=== PATIENT | male | born 1980 | race African-American/Black ===

== ENCOUNTER 2017-05-12 13:53 | Inpatient (IN) | payer OTHER ==
[~2017-05-12] VITALS: Ht 167.6 cm; Wt 91.2 kg
[2017-05-12] MEDS ORDERED: LORAZEPAM 1 MG TABLET FOR AGITATION PO PRN ×2 (14:00→16:00)
--- NOTE | 2017-05-12 15:00 | NUR ---
MS VARITYPE OPERATOR NOTE PATIENT IS ALERT AND ORIENTED x4. NO PAIN AT THIS TIME. NO SOB OR DISTRESS NOTED. CALL LIGHT WITHIN REACH. SAFETY MEASURES IMPLEMENTED. ABLE TO COMMUNICATE NEEDS. NO IV ACCESS AT THIS TIME. ALL BELONGINGS WITH PATIENT AT BEDSIDE. HERE FOR CLINICAL TRIAL. ALL MD ORDERS NOTED AND CARRIED OUT. PATIENT HAS MEDICATIONS WHICH ARE WITH PHARMACY AND SIGNED BY PATIENT. REGULAR DIET WITH DOUBLE PORTIONS. NO HISTORY, NO ISOLATION, FULL CODE. WILL CONTINUE TO MONITOR
[2017-05-12 16:00] VITALS: BP 151/86
[2017-05-12] MEDS ORDERED: ACETAMINOPHEN ES 500 MG TABLET PO PRN (16:00)
[2017-05-12] MEDS ORDERED: MAGNESIUM HYDROXIDE 30 ML UDC PO PRN (16:00)
[2017-05-12] MEDS ORDERED: MAG HYDROX/AL HYDROX/SIMETH 30 ML UDC PO PRN (16:00)
[2017-05-12] MEDS ORDERED: IBUPROFEN 200 MG TABLET PO PRN (16:00)
[2017-05-12] MEDS ORDERED: QUET300T3 PO (16:06)
[2017-05-12] MEDS ORDERED: RISP0.253 PO (16:06)
--- NOTE | 2017-05-12 18:41 | NUR ---
MS RN CLOSING NOTE PATIENT IS ALERT AND ORIENTED x4. NO PAIN AT THIS TIME. NO SOB OR DISTRESS NOTED. CALL LIGHT WITHIN REACH AT ALL TIMES. SAFETY MEASURES IMPLEMENTED. ABLE TO COMMUNICATE NEEDS. NO IV ACCESS. CLINICAL TRIAL. AMBULATORY. WILL ENDORSE TO GRIPPER ATTACHER NURSE
--- NOTE | 2017-05-12 19:40 | NUR ---
MS/RN OPENING NOTES PT AWAKE, A/OX4. ON ROOM AIR, BREATHING EVEN AND UNLABORED. DENIES SOB OR PAIN. NO IV ACCESS. CLINICAL TRIAL. BED IN LOW/LOCKED POSITION WITH CALL LIGHT IN REACH. SIDE RAILS UPX2. WILL CONTINUE TO MONITOR
[2017-05-12 20:00] VITALS: BP 132/71
[2017-05-12 20:13] VITALS: BP 132/71
[2017-05-12] MEDS: risperiDONE 1 MG TABLET PO SCH (22:27)
[2017-05-12] MEDS: QUETIAPINE FUMARATE 100 MG TABLET PO SCH (23:35)
--- NOTE | 2017-05-13 06:42 | NUR ---
MS/RN CLOSING NOTES PT ASLEEP, EASILY AROUSABLE TO NAME. A/OX4, ON ROOM AIR, BREATHING EVEN AND UNLABORED. NO S/S OF APPARENT DISTRESS NOTED. DENIES SOB OR PAIN. NO IV ACCESS. MADE PT COMFORTABLE DURING SHIFT. ALL NEEDS MET. SLEPT FOR APPROX 6 HOURS. BED IN LOW/LOCKED POSITION WITH CALL LIGHT IN REACH. SIDE RAILS UPX2. WILL ENDORSE TO AM SHIFT ERROL.
--- NOTE | 2017-05-13 07:35 | NUR ---
RN OPENING NOTES RECEIVED PT. IN BED A&OX4. BREATHING UNLABORED, AND EVENLY ON ROOM AIR. NO S/S OF ACUTE DISTRESS. BED IS IN LOWEST LOCKED POSITION, 2 SIDE RAILS UP, AND INSTRUCTED PT. TO USE CALL LIGHT FOR ASSISTANCE. WILL CONTINUE TO ASSESS AND MONITOR.
[2017-05-13 08:00] VITALS: BP 120/71
--- NOTE | 2017-05-13 08:30 | NUR ---
RN NOTES PT. LEFT ROOM WITH STATION MECHANIC APPRENTICE TO GO OUTSIDE. PT. CAME BACK TO THE SAME ROOM. PT. LEFT ROOM AGAIN.
[2017-05-13 16:00] VITALS: BP 131/73
--- NOTE | 2017-05-13 19:36 | NUR ---
RN CLOSING NOTES PT. IN BED A&OX4 WATCHING TV. BREATHING UNLABORED, AND EVENLY ON ROOM AIR. NO S/S OF ACUTE DISTRESS. BED IS IN LOWEST LOCKED POSITION, 2 SIDE RAILS UP, AND INSTRUCTED PT. TO USE CALL LIGHT FOR ASSISTANCE. WILL ENDORSE REPORT TO NURSE.
--- NOTE | 2017-05-13 19:40 | NUR ---
MS/RN OPENING NOTES PT AWAKE, RESTING COMFORTABLY IN BED. A/O4. ON ROOM AIR, BREATHING EVEN AND UNLABORED. DENIES SOB OR PAIN. NO IV ACCESS. BED IN LOW/LOCKED POSITION WITH CALL LIGHT IN REACH. SIDE RAILS UPX2. WILL CONTINUE TO MONITOR
[2017-05-13 20:00] VITALS: BP 133/92
[2017-05-13] MEDS: risperiDONE 1 MG TABLET PO SCH (21:31)
[2017-05-13] MEDS: QUETIAPINE FUMARATE 100 MG TABLET PO SCH (22:34)
--- NOTE | 2017-05-13 22:55 | NUR ---
MS/RN NOTES FIRST ATTEMPT TO PULL SCHEDULED SEROQUEL FROM PYX[facility], MEDICATION NOT TAKE. LID CLOSED TOO QUICKLY AND LOCKED. SECOND ATTEMPT SUCCESSFUL
--- NOTE | 2017-05-14 07:40 | NUR ---
MS/RN CLOSING NOTES PT ASLEEP, EASILY AROUSABLE TO NAME. A/OX4. ON ROOM AIR, BREATHING EVEN AND UNLABORED. DENIES SOB OR PAIN. NO APPARENT DISTRESS NOTED. NO IV ACCESS PER PROTOCOL. SLEPT APPROX 6HOURS LAST NIGHT. DENIES S/I OR H/I. NOTES VISUAL/AUDITORY HALLUCINATIONS BUT MEDICATION HELPS A LITTLE BIT. PT REQUESTING FOR DAYTIME ACTIVITIES. BED IN LOW/LOCKED POSITION, CALL LIGHT IN REACH. ENDORSED TO AM SHIFT ERROL.
--- NOTE | 2017-05-14 08:10 | NUR ---
0730: PATIENT ALERT ORIENTED X4. NONLABORED BREATHING ON ROOM AIR. PATIENT'S FACIAL EXPRESSIONS AND BODY MOVEMENTS INDICATE CALMNESS. PATIENT DENIES PAIN, AND DENIES INSOMNIA. BED IN LOWEST LOCKED POSITION. CALL LIGHT WITHIN REACH. 0810- REPORT GIVEN TO LUCY
--- NOTE | 2017-05-14 08:15 | NUR ---
RN NOTES RECEIVED PT. PT IS STABLE AND AWAKE IN BEDSIDE CHAIR. A/OX4, NO S/S OF DISTRESS OR SOB. NO C/O PAIN AT THIS TIME. PT IS A CLINICAL TRIAL PT, SET TO BEGIN TRIAL MEDICATIONS ON 05/19. SAFETY MEASURES IN PLACE, CALL LIGHT WITHIN REACH. WILL CONTINUE TO MONITOR.
[2017-05-14 08:30] VITALS: BP 100/54
--- NOTE | 2017-05-14 15:23 | NUR ---
RN NOTES PT IS STABLE AND RESTING IN BED. A/O X 4. NO SOB OR LABORED BREATHING, NO IV ACCESS. PT HAS NOT REQUESTED FOR ANY PRN MEDICATIONS DURING MY SHIFT.
[2017-05-14 16:10] VITALS: BP 109/76
--- NOTE | 2017-05-14 18:34 | NUR ---
RN CLOSING NOTES PT IS IN BED RESTING. A/OX4. NO S/S OF RESPIRATORY DISTRESS OR SOB. PT HAS BEEN COMPLIANT WITH ALL REQUESTS. PT DENIES ANY PRESENCE OF AUDITORY OR VISUAL HALLUCINATIONS AT THIS TIME. PT DENIES HAVING HI OR SI. ALL PT NEEDS ANTICIPATED AND MET. SAFETY MEASURES IN PLACE, CALL LIGHT WITHIN REACH. WILL ENDORSE TO MEDIA PRODUCER FOR ERROL.
--- NOTE | 2017-05-14 19:30 | NUR ---
RN NOTES: SITTING COMFORTABLY IN BED,A/OX4,COOPERATIVE AND CALM, NO SIGN OF ANXIETY NOTED,ON ROOM AIR, NO PAIN OR DISCOMFORT UPON ENDORSEMENT TIME, FALL, SAFETY PRECAUTION OBSERVE, BED LOW AND LOCKED, CALL LIGHT WITHIN EASY REACH.
[2017-05-14 20:00] VITALS: BP 141/71
--- NOTE | 2017-05-14 20:49 | NUR ---
RN NOTES: STILL AWAKE, WATCHING TV. KEPT COMFORTABLE IN BED, CALL LIGHT WITHIN EASY REACH.
--- NOTE | 2017-05-14 21:30 | NUR ---
RN NOTES: REQUEST FOR SNACK, HE FEELS HUNGRY, JUICE,CRACKERS,BECKY,PUDDING AND APPLESAUCE GIVEN.
[2017-05-14] MEDS: risperiDONE 1 MG TABLET PO SCH (22:01)
[2017-05-14] MEDS: QUETIAPINE FUMARATE 100 MG TABLET PO SCH (22:01)
--- NOTE | 2017-05-14 22:06 | NUR ---
RN NOTES: TUNA SANDWICH GIVEN PER PATIENT REQUEST, DUE MEDICATION GIVE, KEPT RESTED.
--- NOTE | 2017-05-14 23:00 | NUR ---
RN NOTES: ABLE TO SLEEP AND REST.
--- NOTE | 2017-05-15 01:02 | NUR ---
RN NOTES: DURING ROUNDS FOUND PATIENT IS AWAKE WATCHING VIDEO IN HIS MOBILE, ENCOURAGE TO GO BACK TO SLEEP, HE SAID "I WILL".KEPT ON CLOSE VISUAL CHECK.
--- NOTE | 2017-05-15 02:02 | NUR ---
RN NOTES: 0145-PATIENT GO BACK TO SLEEP, KEPT IN COMFORTABLE POSITION.
--- NOTE | 2017-05-15 07:00 | NUR ---
RN INITIAL NOTES REPORT RECEIVED AT THE BEDSIDE. PATIENT IS SLEEPING. NO SOB OR DISTRESS NOTED AT THIS TIME. PATIENT DOES NOT APPEAR TO BE IN PAIN, NO FACIAL GRIMACE NOTED. BED IN A LOW POSITION, CALL LIGHT WITHIN PATIENT REACH. WILL CONTINUE TO MONITOR.
--- NOTE | 2017-05-15 07:29 | NUR ---
RN NOTES: STILL ASLEEP, ENDORSED FOR CONTINUITY OF CARE, CALL LIGHT WITHIN EASY REACH.
[2017-05-15 08:00] VITALS: BP 106/60
[2017-05-15 16:00] VITALS: BP 133/74
--- NOTE | 2017-05-15 19:05 | NUR ---
RN CLOSING NOTES NO SIGNIFICANT CHANGES IN PATIENT CONDITION THROUGHOUT THE SHIFT. NO SOB OR DISTRESS NOTED AT THIS TIME. PATIENT DENIES PAIN. PT DENIES SI/HI. NO HALLUCINATIONS REPORTED AT THIS TIME. BED IN A LOW POSITION, CALL LIGHT WITHIN PATIENT REACH. WILL ENDORSE FOR ERROL.
--- NOTE | 2017-05-15 19:20 | NUR ---
MS RN OPENING NOTES RECEIVED PATIENT SLEEPING IN BED IN SEMI SHEARER POSITION, A & O X 4. NO SOB, NO C/O PAIN, NO ACUTE DISTRESS NOTED. IV ACCESS TO LAC RUNNING WITH NS @ 75 ML/HR, INTACT PATENT. WILL ASSESS FOR PAIN. BED IN LOW LOCKED POSITION. CALL LIGHT WITHIN PLACE. SAFETY MEASURES IN PLACE. WILL OBSERVE CLOSELY.
--- NOTE | 2017-05-15 19:21 | NUR ---
ADDENDUM WRONG ENTRY OF 7PM-7AM SHIFT OPENING NOTES, WRONG PATIENT.
--- NOTE | 2017-05-15 19:25 | NUR ---
MS RN OPENING NOTES RECEIVED PATIENT SITTING IN BED, WANTING TO GO SMOKE. A & O X 4. NO C/O PAIN, NO ACUTE DISTRESS NOTED. ON CLINICAL TRIAL. SEEMS TO BE CALM & RELAXED. NO C/O HALLUCINATIONS AT THIS TIME. BED IN LOW LOCKED POSITION. CALL LIGHT WITHIN REACH. SAFETY MEASURES IN PLACE. WILL ASSIST HIM TO GO FOR SMOKING SHORTLY.
--- NOTE | 2017-05-15 19:35 | NUR ---
MS RN NOTES PATIENT WENT FOR SMOKING WITH SALESPERSON [employer] CARS DOWNSTAIRS.
--- NOTE | 2017-05-15 19:50 | NUR ---
MS RN NOTES PATIENT CAME BACK TO HIS ROOM AFTER SMOKING. NO BEHAVIOR EPISODES NOTED.
[2017-05-15 20:00] VITALS: BP 133/75
[2017-05-15] MEDS: risperiDONE 1 MG TABLET PO SCH (22:05)
[2017-05-15] MEDS: QUETIAPINE FUMARATE 100 MG TABLET PO SCH (22:06)
--- NOTE | 2017-05-16 03:00 | NUR ---
MS RN NOTES PATIENT SLEEPING COMFORTABLY. NO COMPLICATIONS NOTED.
--- NOTE | 2017-05-16 06:38 | NUR ---
MS RN CLOSING NOTES PATIENT SLEPT WELL AT NIGHT ABOUT 7-8 HRS. A & O X 4, NO C/O PAIN, NO ACUTE DISTRESS NOTED. NO HALLUCINATION, NO BEHAVIOR EPISODES NOTED. COOPERATIVE WITH MEDS & CARE. NO IV ACCESS. AMBULATORY, CONTINENT. ON CLINICAL TRIAL. BED IN LOW LOCKED POSITION. SAFETY CALL LIGHT WITHIN REACH. WILL ENDORSE TO AM RN FOR CONTINUITY OF CARE.
[2017-05-16 08:00] VITALS: BP 120/88
--- NOTE | 2017-05-16 08:00 | NUR ---
MS RN OPENING NOTE PATIENT IS ALERT AND ORIENTED x4. NO PAIN AT THIS TIME. NO SOB OR DISTRESS NOTED. CALL LIGHT WITHIN REACH. SAFETY MEASURES IMPLEMENTED. ABLE TO COMMUNICATE NEEDS. ALL NURSING CARE NEEDS TO BE ATTENDED TO. NO IC ACCESS. CLINICAL TRIAL. VITAL SIGNS WITHIN NORMAL LIMITS. WILL CONTINUE TO MONITOR
[2017-05-16 16:00] VITALS: BP 131/77
--- NOTE | 2017-05-16 18:39 | NUR ---
MS RN CLOSING NOTE PATIENT IS ALERT AND ORIENTED x4. NO PAIN AT THIS TIME. NO SOB OR DISTRESS NOTED. CALL LIGHT WITHIN REACH AT ALL TIMES. SAFETY MEASURES IMPLEMENTED. ABLE TO COMMUNICATE NEEDS. NO SLEEP NOTED TODAY. PATIENT DID STATE THAT HE HEARS VOICES BUT HAS BEEN DISTRACTED BY WATCHING TELEVISION. ABLE TO EXPRESS FEELINGS THROUGHOUT SHIFT. NO IV ACCESS AT THIS TIME. CLINICAL TRIAL. WILL ENDORSE TO SLOTS MANAGER NURSE FOR ERROL
--- NOTE | 2017-05-16 19:35 | NUR ---
MS RN OPENING NOTE PATIENT IS ALERT AND ORIENTED x4. NO PAIN AT THIS TIME. NO SOB OR DISTRESS NOTED. BREATHING EVENLY AND UNLABORED ON RA. CALL LIGHT WITHIN REACH. SAFETY MEASURES IMPLEMENTED. ABLE TO COMMUNICATE NEEDS. NO IV ACCESS. CLINICAL TRIAL. WILL CONTINUE TO MONITOR
[2017-05-16 20:00] VITALS: BP 130/100
[2017-05-16] MEDS: QUETIAPINE FUMARATE 100 MG TABLET PO SCH (21:44)
[2017-05-16] MEDS: risperiDONE 1 MG TABLET PO SCH (21:44)
--- NOTE | 2017-05-17 07:15 | NUR ---
RN OPENING NOTE RECEIVED PATIENT IN BED RESTING, RESPONSIVE, A/OX4. ABLE TO COMMUNICATE NEEDS. NO ACUTE DISTRESS, NO SOB NOTED. DENIES PAIN OR DISCOMFORT AT THE MOMENT. NO IV ACCESS. CLINICAL TRIAL. KEPT PATIENT SAFE AND COMFORTABLE. BED IN LOCKED, LOW POSITION, SIDERAILS UPX2, CALL LIGHT IN REACH. WILL CONTINUE TO MONITOR ACCORDINGLY.
--- NOTE | 2017-05-17 07:40 | NUR ---
MS RN CLOSING NOTES PT IS IN BED RESTING, STATES ONLY GOT 3 HOURS OF SLEEP LAST NIGHT. DENIES ANY PAIN. STATES HE CONTINUES TO HEAR VOICES. BED IS IN LOW AND LOCKED POSITION, CALL LIGHT WITHIN REACH. WILL ENDORSE TO DAY SHIFT.
[2017-05-17 08:00] VITALS: BP 101/71
[2017-05-17 16:00] VITALS: BP 134/78
--- NOTE | 2017-05-17 19:30 | NUR ---
MS/RN OPENING NOTES PT RETURNED TO UNIT FROM SMOKE BREAK ACCOMPANIED BY FERNANDEZ HOWARD. A/OX4. DENIES S/I OR H/I. ON ROOM AIR, BREATHING EVEN AND UNLABORED. PT IS CALM AND COOPERATIVE. MADE AWARE OF TRANSFER TO MS 2. PT VERBALIZED UNDERSTANDING ALTHOUGH WAS NOT TOO HAPPY. BED IN LOW/LOCKED POSITION, CALL LIGHT IN REACH. SIDE RAILS UPX2. WILL CONTINUE TO MONITOR AND TRANSFER PT TO MS2 WITH BELONGINGS.
--- NOTE | 2017-05-17 19:38 | NUR ---
RN CLOSING NOTES PATIENT IN BED RESTING. NO ACUTE DISTRESS, NO SOB NOTED. DENIES PAIN OR DISCOMFORT. ALL NEEDS ATTENDED AND PROVIDED. BED IN LOW POSITION, LOCKED, SIDERAILS UP X2. CALL LIGHT WITHIN REACH. ENDORSED TO NIGHT RN FOR ERROL.
[2017-05-17 20:00] VITALS: BP 120/76
[2017-05-17] MEDS ORDERED: risperiDONE 0.25 MG TABLET PO SCH (22:00)
[2017-05-17] MEDS ORDERED: QUETIAPINE FUMARATE 25 MG TABLET PO SCH (22:00)
--- NOTE | 2017-05-18 07:45 | NUR ---
MS/RN CLOSING NOTES PT AWAKE AMBULATING ON UNIT. A/OX4. SLEPT APPROX. 6-7 HOURS. ON ROOM AIR, BREATHING EVEN AND UNLABORED. NO SOB OR PAIN. DENIES S/I OR H/I. NO IV ACCESS. NO CHANGES OVERNIGHT. MADE PT COMFORTABLE DURING SHIFT. ALL NEEDS MET. BED IN LOW/LOCKED POSITION WITH CALL LIGHT IN REACH. SIDE RAILS UPX2. ENDORSED TO AM SHIFT ERROL.
[2017-05-18 08:00] VITALS: BP 104/67
[2017-05-18 16:00] VITALS: BP 110/70
--- NOTE | 2017-05-18 19:08 | NUR ---
RN CLOSING NOTES NO SIGNIFICANT CHANGES IN PATIENT CONDITION THROUGHOUT THE SHIFT. PATIENT DENIES SI/HI/ AND HALUCINATIONS. PT AWARE OF NPO POST MIDNIGHT TONIGHT. WILL ENDORSE FOR ERROL.
--- NOTE | 2017-05-18 19:30 | NUR ---
MS/RN OPENING NOTES PT AWAKE, RESTING COMFORTABLY IN BED. A/OX4. ON ROOM AIR, BREATHING EVEN AND UNLABORED. DENIES SOB OR PAIN. PT AWARE OF NPO POST 2100 AND NO ATIVAN POST 2100. PT VERBALIZED UNDERSTANDING. PT DENIES S/I, H/I. DOES NOTE AUDITORY HALLUCINATIONS. CALM AND COOPERATIVE. BED IN LOW/LOCKED POSITION WITH CALL LIGHT IN REACH. SIDE RAILS UPX2. WILL CONTINUE TO MONITOR
[2017-05-18 20:00] VITALS: BP 132/82
--- NOTE | 2017-05-19 06:49 | NUR ---
MS/RN CLOSING NOTES PT ASLEEP, EASILY AROUSABLE TO NAME. ON ROOM AIR, BREATHING EVEN AND UNLABORED. DENIES SOB OR PAIN. NO IV ACCESS. PT SLEPT APPROX 6HOURS LAST NIGHT. PT REMAINED NPO SINCE 2099 YESTERDAY. HOLD BREAKFAST TRAY, PT FOR BLOOD DRAW THIS AM. NO SIGNIFICANT CHANGES OVERNIGHT. MADE PT COMFORTABLE DURING SHIFT. ALL NEEDS MET. BED IN LOW/LOCKED POSITION WITH CALL LIGHT IN REACH. SIDE RAILS UPX2. ENDORSED TO AM SHIFT ERROL.
[2017-05-19 08:00] VITALS: BP 118/79
[2017-05-19] MEDS: INVEST MED MK-8189 MISC 1 CAP EA PO SCH (09:00)
[2017-05-19] MEDS: INVEST MED MK-8189 MISC 1 TAB EA PO SCH (09:00)
--- NOTE | 2017-05-19 09:01 | NUR ---
RN NOTES PT TAKEN OFF FLOOR BY MD DIAMOND POWDER TECHNICIAN FOR BLOOD TESTING.
--- NOTE | 2017-05-19 11:04 | NUR ---
RN NOTES PT RETURNED FROM MD OFFICE. PT RECEIVED INVESTIGATIONAL MEDICATIONS AT MD OFFICE.
[2017-05-19] MEDS ORDERED: LORAZEPAM 1 MG TABLET FOR AGITATION PO PRN (12:00)
[2017-05-19 16:00] VITALS: BP 120/84
--- NOTE | 2017-05-19 18:47 | NUR ---
RN CLOSING NOTES NO SIGNIFICANT CHANGES IN PATIENT CONDITION THROUGHOUT THE SHIFT. NO SOB OR DISTRESS NOTED AT THIS TIME. PATIENT DENIES PAIN AT THIS TIME. DENIES SI/HI/ HALLUCINATIONS. BED IN A LOW POSITION, CALL LIGHT WITHIN PATIENT REACH. WILL ENDORSE FOR ERROL.
--- NOTE | 2017-05-19 19:00 | NUR ---
MS/RN OPENING NOTES PT RECEIVED IN BED. A/O X 4. TOLERATING ROOM AIR, BREATHING EVEN AND UNLABORED, NO APPARENT SIGN OF DISTRESS. PT APPEARS CALM. BED IN LOW/LOCKED POSITION WITH CALL LIGHT IN REACH. SIDE RAILS UPX2 AND BED ALARM ON FOR SAFETY. WILL CONTINUE TO MONITOR
[2017-05-19 20:00] VITALS: BP 116/77
[2017-05-19 20:21] VITALS: BP 116/77
--- NOTE | 2017-05-20 06:31 | NUR ---
MS RN CLOSING NOTES PATIENT COMFORTABLY ASLEEP AND EASILY AWAKEN, HOB ELEVATED FOR BETTER LUNG EXPANSION. PATIENT DENIES PAIN AT THIS TIME. RESPIRATIONS EVEN AND UNLABORED. NO S/S OF ACUTE DISTRESS, NO SOB, AFEBRILE, ALL NURSING CARE RENDERED, NEEDS ATTENDED AND ANTICIPATED, KEPT CLEAN AND DRY AND COMFORTABLE, NO AKATHISIA OR TREMORS, NO EPS NO PSYCHIATRIC INSTABILITY. GOOD SKIN CARE PROVIDED. FREQUENT VISUAL CHECK DONE FOR SAFETY EVERY 2 HOURS. SAFE HAZARD FREE ENVIRONMENT PROVIDED. CALL LIGHT WITHIN EASY TO REACH, ON LOW BED AT ALL TIMES TO ENSURE SAFETY, WILL ENDORSE TO THE NEXT SHIFT CONTINUE PLAN OF CARE.
--- NOTE | 2017-05-20 07:19 | NUR ---
MS RN OPENING NOTES PATIENT RECEIVED IN BED AWAKE AND IN NO ACUTE SIGNS OF DISTRESS. A/O X 4. AMBULATORY AND VERBALLY RESPONSIVE, NO C/O PAIN OR DISCOMFORTS VOICED AT THIS TIME. ON ROOM AIR, BREATHING EVEN AND UNLABORED. BED IN LOW/LOCKED POSITION WITH CALL LIGHT IN REACH. SIDE RAILS UP X2. WILL CONTINUE TO MONITOR PT ACCORDINGLY.
[2017-05-20 08:00] VITALS: BP 103/70
[2017-05-20] MEDS: INVEST MED MK-8189 MISC 1 TAB EA PO SCH (08:51)
[2017-05-20] MEDS: INVEST MED MK-8189 MISC 1 CAP EA PO SCH (08:51)
--- NOTE | 2017-05-20 09:12 | NUR ---
RN NOTES PT STARTED ON 2 INVESTIGATIONAL MEDS TODAY 1 DOSE OF 3 DOSES. WILL CONTINUE TO MONITOR PT.
[2017-05-20 16:00] VITALS: BP 110/69
--- NOTE | 2017-05-20 19:00 | NUR ---
MS/RN OPENING NOTES PT RECEIVED IN BED. A/O X 4. IN STABLE CONDITION. BREATHING EVEN AND UNLABORED, TOLERATING ROOM AIR 99% NO APPARENT SIGN OF DISTRESS. BED IN LOW/LOCKED POSITION WITH CALL LIGHT IN REACH. SIDE RAILS UPX2 AND BED ALARM ON FOR SAFETY. WILL CONTINUE TO MONITOR
--- NOTE | 2017-05-20 19:05 | NUR ---
MS RN CLOSING NOTES PATIENT AWAKE AND RESTING IN BED AT THIS TIME. A/O X 4. AMBULATORY AND VERBALLY RESPONSIVE, NO C/O PAIN OR DISCOMFORTS VOICED THROUGHOUT THE DAY. ON ROOM AIR, BREATHING EVEN AND UNLABORED. KEPT BED IN LOW/LOCKED POSITION WITH CALL LIGHT IN REACH. SIDE RAILS UP X2. ALL NEEDS AND CARE ATTENDED WELL. PT CONTINUES ON CLINICAL TRIAL. WILL ENDORSED TO PROCED TECH NURSE FOR ERROL. .
[2017-05-20 20:00] VITALS: BP 119/84
--- NOTE | 2017-05-21 06:41 | NUR ---
MS RN CLOSING NOTES PT ASLEEP EASILY AWAKEN, HEAD OF BED ELEVATED FOR BETTER LUNG EXPANSION. IN STABLE CONDITION. TOLERATING ROOM AIR 02 SAT AT 99%. NO PSYCHIATRIC INSTABILITY AT THIS MOMENT NO EPS, NO S/S OF ACUTE DISTRESS, NO SOB, RESPIRATIONS EVEN AND UNLABORED. PATIENT DENIES PAIN AT THIS TIME.. AFEBRILE, ALL NURSING CARE RENDERED, NEEDS ATTENDED AND ANTICIPATED, KEPT CLEAN AND DRY AND COMFORTABLE, GOOD SKIN CARE PROVIDED. SAFETY HAZARD FREE ENVIRONMENT.. CALL LIGHT WITHIN EASY TO REACH, ON LOW BED AT ALL TIMES TO ENSURE SAFETY, WILL ENDORSE TO THE NEXT SHIFT CONTINUE PLAN OF CARE.
--- NOTE | 2017-05-21 07:26 | NUR ---
MS RN OPENING NOTES PATIENT RECEIVED ASLEEP IN BED, EASILY AROUSABLE. A/O X 4. VERBALLY RESPONSIVE, NO C/O PAIN OR DISCOMFORTS VOICED AT THIS TIME. ON ROOM AIR, BREATHING EVEN AND UNLABORED. BED IN LOW/LOCKED POSITION. BEDSODE TABLE AND CALL LIGHT WITHIN REACH OF PT. WILL CONTINUE TO MONITOR PT ACCORDINGLY.
[2017-05-21 08:00] VITALS: BP 107/70
[2017-05-21] MEDS: INVEST MED MK-8189 MISC 1 TAB EA PO SCH (09:43)
[2017-05-21] MEDS: INVEST MED MK-8189 MISC 1 CAP EA PO SCH (09:44)
[2017-05-21 16:00] VITALS: BP 108/66
--- NOTE | 2017-05-21 18:38 | NUR ---
MS RN CLOSING NOTES PATIENT IN BED RESTING. A/O X 4. AMBULATORY AND VERBALLY RESPONSIVE, NO C/O PAIN OR DISCOMFORTS VOICED THROUGHOUT THE DAY. PT SMOKES CIGARETTE OUTSIDE ACCOMPANIED BY NURSE EMERGENCY ROOM. ON ROOM AIR, BREATHING EVEN AND UNLABORED. KEPT BED IN LOW/LOCKED POSITION WITH CALL LIGHT IN REACH. SIDE RAILS UP X2. ALL NEEDS AND CARE ATTENDED WELL. PT CONTINUES ON CLINICAL TRIAL. WILL ENDORSED TO PRINTER SMALL PRINT SHOP NURSE FOR ERROL.
--- NOTE | 2017-05-21 19:00 | NUR ---
MS/RN OPENING NOTES RECEIVED IN BED. A/O X 4. BREATHING EVEN AND UNLABORED, TOLERATING ROOM AIR 99% NO APPARENT SIGN OF DISTRESS. BED IN LOW/LOCKED POSITION WITH CALL LIGHT IN REACH. SIDE RAILS UPX2 AND BED ALARM ON FOR SAFETY. WILL CONTINUE TO MONITOR
[2017-05-21] MEDS ORDERED: HYDROMORPHONE INJ 2 MG/ML DISP.SYRIN ONE (19:42)
[2017-05-21] MEDS ORDERED: ONDANSETRON HCL/PF 4 MG/2 ML VIAL ONE (19:43)
[2017-05-21 20:00] VITALS: BP 118/66
--- NOTE | 2017-05-22 06:38 | NUR ---
MS RN CLOSING NOTES ASLEEP AND EASILY AWAKEN, STABLE CONDITION. HEAD OF BED ELEVATED FOR BETTER LUNG EXPANSION. TOLERATING ROOM AIR 02 SAT AT 99%. NO S/S OF ACUTE DISTRESS, NO SOB, NO COMPLAINS OF CHEST PAIN, NO PSYCHIATRIC INSTABILITY. RESPIRATIONS EVEN AND UNLABORED. PATIENT DENIES PAIN AT THIS TIME. AFEBRILE, ALL NURSING CARE RENDERED, NEEDS ATTENDED AND ANTICIPATED, KEPT CLEAN AND DRY AND COMFORTABLE, GOOD SKIN CARE PROVIDED. SAFETY HAZARD FREE ENVIRONMENT. CALL LIGHT WITHIN EASY TO REACH, ON LOW BED AT ALL TIMES TO ENSURE SAFETY, WILL ENDORSE TO THE NEXT SHIFT CONTINUE PLAN OF CARE.
--- NOTE | 2017-05-22 07:53 | NUR ---
RN OPENING NOTES RECEIVED PATIENT SLEEPING IN BED COMFORTABLY. EASILY AROUSABLE. AOX4. PATIENT IS A CLINICAL TRIAL. DENIES ANY PAIN, CP OR SOB AT THIS TIME. RESPIRATIONS EVEN AND UNLABORED. BED LOCKED IN THE LOWEST POSITION WITH SIDE RAILS UP X2. CALL LIGHT WITHIN REACH. WILL CONTINUE TO MONITOR ASSESS AND EDUCATE PATIENT THROUGHOUT SHIFT.
[2017-05-22 08:09] VITALS: BP 92/58
[2017-05-22] MEDS: INVEST MED MK-8189 MISC 2 TAB EA PO SCH (08:46)
[2017-05-22] MEDS: INVEST MED MK-8189 MISC 2 CAP EA PO SCH (08:46)
[2017-05-22 15:57] VITALS: BP 120/77
--- NOTE | 2017-05-22 19:30 | NUR ---
RN NOTES RECEIVED PT AWAKE ON BED, A/OX4, AMBULATORY, CALM AND COOPERATIVE, CALL LIGHT WITHIN REACH, SIDERAILS UPX2 , CONTINUE TO MONITOR
[2017-05-22 20:00] VITALS: BP 112/70
[2017-05-22 20:08] VITALS: BP 112/70
--- NOTE | 2017-05-22 20:08 | NUR ---
RN CLOSING NOTES PATIENT RESTING COMFORTABLY IN BED. NO PAIN. NO CP. DENIES SOB. RESPIRATIONS EVEN AND UNLABORED. NO ACUTE DISTRESS. ALL NEEDS MET. ALL MEDS GIVEN APPROPRIATE. WILL ENDORSE TO NIGHT RN FOR ERROL.
--- NOTE | 2017-05-23 07:27 | NUR ---
RN NOTES SLEEPING BUT AROUSABLE, CALM AND COOPERATIVE, SIDERAILS UPX2, PT. NEEDS ATTENDED
--- NOTE | 2017-05-23 07:30 | NUR ---
RN NOTES PATIENT ALERT AND ORIENTED X4, CALM AND COOPERATIVE. NO BEHAVIORAL DISTURBANCE NOTED. NEEDS ATTENDED AND MET. WILL CONTINUE TO MONITOR.
[2017-05-23 08:00] VITALS: BP 95/62
[2017-05-23] MEDS: INVEST MED MK-8189 MISC 2 CAP EA PO SCH (08:12)
[2017-05-23] MEDS: INVEST MED MK-8189 MISC 2 TAB EA PO SCH (08:12)
[2017-05-23 16:00] VITALS: BP 124/70
--- NOTE | 2017-05-23 18:35 | NUR ---
RN NOTES PATIENT IS IN NO DISTRESS, NO BEHAVIORAL DISTURBANCE NOTED THROUGHOUT THIS SHIFT. DR. COYLE CAME AND EXAMINED PATIENT. NO NEW ORDER AT THIS TIME. WILL ENDORSE TO SHOOK SPLICER FOR ERROL.
--- NOTE | 2017-05-23 19:50 | NUR ---
MS RN NOTE: PATIENT RESTING IN BED, NO ACUTE DISTRESS NOTED. BREATHING EVEN AND UNLABORED, NO SOB NOTED. PATIENT CALM AND COOPERATIVE. BED LOCKED AND IN LOWEST POSITION, CALL LIGHT IN REACH. WILL CONTINUE TO MONITOR.
[2017-05-23 20:00] VITALS: BP 133/72
[2017-05-23] MEDS: ZOLPIDEM TARTRATE 10 MG TABLET PO PRN (21:34)
--- NOTE | 2017-05-23 21:40 | NUR ---
MS RN NOTE: PATIENT REQUEST FOR AMBIEN 10MG ORAL PER MD ORDER, WILL CONTINUE TO MONITOR.
--- NOTE | 2017-05-24 02:00 | NUR ---
MS RN NOTE: REPORT GIVEN TO MORIS, PATIENT SLEEPING, NO ACUTE DISTRESS. WILL CONTINUE WITH PLAN OF CARE.
--- NOTE | 2017-05-24 06:52 | NUR ---
RN NOTES PATIENT ASLEEP WELL FOR ABOUT 7 HOURS ON BED. BREATHING EVEN AND UNLABORED NO UNUSUAL BEHAVIORAL PROBLEM NO EPISODE OF AUDITORY AND VISUAL HALLUCINATION STATED. NO HI/SI. NO SIGNIFICANT CHANGES OF CONDITION NOTED. AFEBRILE. VS STABLE. ALL NEEDS ATTENDED. CONTINUE ON WITH CLINICAL TRIAL PROTOCOL KEPT PT CLEAN AND DRY WILL ENDORSED CONTINUITY OF CARE TO AM NURSE.
--- NOTE | 2017-05-24 07:10 | NUR ---
RN INITIAL NOTES REPORT RECEIVED FROM DENTAL SERVICE CHIEF. NO SOB OR DISTRESS NOTED AT THIS TIME. PATIENT IS SLEEPING, DOES NOT APPEAR TO BE IN PAIN, NO FACIAL GRIMACE NOTED. BED IN A LOW POSITION, CALL LIGHT WITHIN PATIENT REACH. WILL CONTINUE TO MONITOR.
[2017-05-24 08:00] VITALS: BP 115/72
[2017-05-24] MEDS: INVEST MED MK-8189 MISC 2 TAB EA PO SCH (08:20)
[2017-05-24] MEDS: INVEST MED MK-8189 MISC 2 CAP EA PO SCH (08:21)
[2017-05-24 16:00] VITALS: BP 145/80
--- NOTE | 2017-05-24 19:03 | NUR ---
RN CLOSING NOTES NO SIGNIFICANT CHANGES IN PATIENT CONDITION THROUGHOUT THE SHIFT. NO SOB OR DISTRESS NOTED AT THIS TIME. PATIENT DENIES SIGNIFICANT PAIN. BED IN A LOW POSITION, CALL LIGHT WITHIN PATIENT REACH. WILL ENDORSE FOR ERROL.
[2017-05-24 20:00] VITALS: BP 144/92
--- NOTE | 2017-05-24 20:00 | NUR ---
MS RN NOTE: PATIENT ANXIOUS AND REQUESTING FOR ATIVAN. ATIVAN 1MG ORAL GIVEN PER MD ORDER. INFORMED THAT PATIENT CAN NOT HAVE ANYMORE ATIVAN FOR TONIGHT UNTIL TOMORROW PER CLINICAL PROTOCOL. WILL CONTINUE TO MONITOR.
[2017-05-24] MEDS: ZOLPIDEM TARTRATE 10 MG TABLET PO PRN (21:22)
--- NOTE | 2017-05-25 06:20 | NUR ---
MS RN NOTE: PATIENT RESTING IN BED, NO ACUTE DISTRESS NOTED. BREATHING EVEN AND UNLABORED, NO SOB NOTED. PATIENT CALM AND COOPERATIVE. PATIENT SLEEP ABOUT 6 HOURS. BED LOCKED AND IN LOWEST POSITION, CALL LIGHT IN REACH. WILL ENDORSE TO DAY NURSE TO CONTINUE WITH PLAN OF CARE.
--- NOTE | 2017-05-25 07:10 | NUR ---
RN INITIAL NOTES REPORT RECEIVED AT THE BEDSIDE. PATIENT IS SLEEPING. NO SOB OR DISTRESS NOTED AT THIS TIME. PATIENT DOES NOT APPEAR TO BE IN PAIN. BED IN A LOW POSITION, CALL LIGHT WITHIN PATIENT REACH. WILL CONTINUE TO MONITOR.
[2017-05-25] MEDS: INVEST MED MK-8189 MISC 3 CAP EA PO SCH (08:29)
[2017-05-25] MEDS: INVEST MED MK-8189 MISC 3 TAB EA PO SCH (08:29)
[2017-05-25 09:15] VITALS: BP 103/68
[2017-05-25] MEDS: LORAZEPAM 1 MG TABLET FOR AGITATION PO PRN (14:56)
[2017-05-25 16:00] VITALS: BP 126/51
--- NOTE | 2017-05-25 18:26 | NUR ---
RN CLOSING NOTES NO SIGNIFICANT CHANGES IN PATIENT CONDITION THROUGHOUT THE SHIFT. NO SOB OR DISTRESS NOTED AT THIS TIME. PATIENT DENIES PAIN, SI/HI, OR HALLUCINATIONS AT THIS TIME. BED IN A LOW POSITION, CALL LIGHT WITHIN PATIENT REACH. WILL ENDORSE FOR ERROL.
--- NOTE | 2017-05-25 19:11 | NUR ---
RN NOTES RECEIVED PT IN BED, RESTING COMFORTABLY. A/O X 4. VERBALLY RESPONSIVE. NO DISTRESS, NO SOB NOTED. STABLE. AMBULATORY. ALL NEEDS ATTENDED AND MET. KEPT CLEAN, DRY AND COMFORTABLE. CALL LIGHT WITHIN REACH . WILL CONT TO MONITOR.
[2017-05-25 20:00] VITALS: BP 116/71
[2017-05-25] MEDS: ZOLPIDEM TARTRATE 10 MG TABLET PO PRN (21:03)
--- NOTE | 2017-05-26 06:23 | NUR ---
RN NOTES PT IN BED, ASLEEP AT THIS TIME. AROUSES EASILY. A/O X 4. VERBALLY RESPONSIVE. NO DISTRESS, NO SOB NOTED. STABLE. ALL NEEDS ATTENDED AND MET. SAFETY PRECAUTIONS OBSERVED. CALL LIGHT WITHIN REACH . WILL ENDORSE TO NEXT SHIFT FOR ERROL.
--- NOTE | 2017-05-26 06:32 | NUR ---
HOURS OF SLEEP : 9 HOURS
--- NOTE | 2017-05-26 07:15 | NUR ---
MS/RN Patient received Patient received from [employer] shift lead. Sleeping, no distress, will continue to monitor.
[2017-05-26 08:00] VITALS: BP 118/70
[2017-05-26 08:06] VITALS: BP 118/70
[2017-05-26] MEDS: INVEST MED MK-8189 MISC 3 CAP EA PO SCH (08:13)
[2017-05-26] MEDS: INVEST MED MK-8189 MISC 3 TAB EA PO SCH (08:13)
--- NOTE | 2017-05-26 08:15 | NUR ---
MS/RN Medications Investigational medications administered as ordered, per patient request, administered t this time so medications could be taken with food.
[2017-05-26] MEDS: LORAZEPAM 1 MG TABLET FOR AGITATION PO PRN ×2 (09:39→18:28)
--- NOTE | 2017-05-26 09:41 | NUR ---
MS/RN Ativan Ativan 1mg given for anxiety, per patient "I need something to calm me down". Will monitor effectiveness.
--- NOTE | 2017-05-26 12:38 | NUR ---
MS/RN Behavior No behavior concerns or outburst.
[2017-05-26 16:00] VITALS: BP 122/74
[2017-05-26 16:25] VITALS: BP 122/74
--- NOTE | 2017-05-26 18:23 | NUR ---
MS/RN End note Remains calm and cooperative with plan of care. No further prn medications requested. Will endorse to packing clerk.
--- NOTE | 2017-05-26 18:35 | NUR ---
MS/RN Ativan Ativan given at patient's request for anxiety.
--- NOTE | 2017-05-26 19:15 | NUR ---
RN NOTES RECEIVED PT IN BED, AWAKE. A/O X 4. WATCHING TV AT THIS TIME. VERBALLY RESPONSIVE. NO DISTRESS, NO SOB NOTED. STABLE. AMBULATORY. ALL NEEDS ATTENDED AND MET. KEPT CLEAN, DRY AND COMFORTABLE. CALL LIGHT WITHIN REACH . WILL CONT TO MONITOR.
[2017-05-26 20:00] VITALS: BP 121/69
[2017-05-26 20:10] VITALS: BP 121/69
[2017-05-26] MEDS: ZOLPIDEM TARTRATE 10 MG TABLET PO PRN (21:20)
--- NOTE | 2017-05-27 06:29 | NUR ---
RN CLOSING NOTES PT ASLEEP , AROUSES EASILY. REMAINS STABLE. NO SIGNIFICANT CHANGES IN PATIENT CONDITION THROUGHOUT THE SHIFT. NO SOB OR DISTRESS NOTED AT THIS TIME. PATIENT WITH NO C/O PAIN OR DISCOMFORT. BED IN A LOW POSITION, CALL LIGHT WITHIN PATIENT REACH. SAFETY PRECAUTIONS OBSERVED. WILL ENDORSE TO NEXT SHIFT FOR ERROL.
--- NOTE | 2017-05-27 07:13 | NUR ---
HOURS OF SLEEP : 8
--- NOTE | 2017-05-27 07:25 | NUR ---
RN OPEN NOTES RECEIVED REPORT FROM [employer] VISUAL DESIGNER NURSE. PATIENT IS AWAKE, IN BED. ALERT AND ORIENTED TO NAME, PLACE AND TIME. NO SIGNS AND SYMPTOMS OF DISTRESS; DENIED PAIN. BED IN LOW POSITION, LOCKED AND TWO SIDE RAILS ARE UP. CALL LIGHT WITHIN REACH. WILL CONTINUE TO MONITOR AND ASSESS PATIENT THROUGH OUT MY SHIFT.
[2017-05-27 08:00] VITALS: BP 88/59
[2017-05-27] MEDS: INVEST MED MK-8189 MISC 3 CAP EA PO SCH (08:55)
[2017-05-27] MEDS: INVEST MED MK-8189 MISC 3 TAB EA PO SCH (08:55)
[2017-05-27 10:00] VITALS: BP 105/72
[2017-05-27] MEDS: LORAZEPAM 1 MG TABLET FOR AGITATION PO PRN (14:42)
[2017-05-27 16:00] VITALS: BP 105/72
--- NOTE | 2017-05-27 18:33 | NUR ---
RN CLOSING NOTES PATIENT IS ALERT AND ORIENTED TO NAME, PLACE, AND TIME. NO SIGNIFICANT CHANGES IN PATIENT CONDITION THROUGHOUT THE SHIFT. NO SIGNS AND SYMPTOMS OF ANY DISTRESS OR PAIN. BED IN A LOW POSITION, CALL LIGHT WITHIN PATIENT REACH. SAFETY PRECAUTIONS OBSERVED. WILL ENDORSE TO NEXT SHIFT RN FOR ERROL.
--- NOTE | 2017-05-27 19:15 | NUR ---
MS RN OPENING NOTES: RECEIVED PT AND IS RESTING IN BED WITH THE TELEVISION ON. PT REQUESTS TO HAVE HIS DOOR SHUT. PT IS A/OX4. NO S/S OF DISTRESS NOTED AT THIS TIME. PT HAS NO IV NOTED AT THIS TIME. NO SOB NOTED. CALL LIGHT WITHIN PT'S REACH. BED KEPT IN LOW, LOCKED POSITION, AND SIDE RAILS X 2UP. WILL CONTINUE TO MONITOR PT.
[2017-05-27 20:00] VITALS: BP 110/82
[2017-05-27] MEDS: ZOLPIDEM TARTRATE 10 MG TABLET PO PRN (21:08)
--- NOTE | 2017-05-27 21:10 | NUR ---
MS RN NOTES: PT REQUESTED FOR HIS SLEEPING MED. PT WAS ADMINISTERED AMBIEN 10MG PO. WILL CONTINUE TO MONITOR PT.
--- NOTE | 2017-05-28 06:42 | NUR ---
MS RN CLOSING NOTES: ALL NEEDS WERE ATTENDED AND ANTICIPATED FOR. PT IS RESTING IN BED COMFORTABLY. PT IS A/OX4. NO S/S OF DISTRESS NOTED AT THIS TIME. PT HAS NO IV NOTED AT THIS TIME. NO SOB NOTED. CALL LIGHT WITHIN PT'S REACH. BED KEPT IN LOW, LOCKED POSITION, AND SIDE RAILS X 2UP. PT GOT 9 HOURS OF SLEEP. WILL ENDORSE TO AM NURSE FOR ERROL.
--- NOTE | 2017-05-28 07:15 | NUR ---
RN OPEN NOTES RECEIVE REPORT FROM SHOP MECHANIC HELPER NURSE. WILL CONTINUE TO MONITOR AND ASSESS PATIENT THROUGHOUT MY SHIFT
[2017-05-28 08:00] VITALS: BP 103/60
[2017-05-28] MEDS: INVEST MED MK-8189 MISC 3 TAB EA PO SCH (08:01)
[2017-05-28] MEDS: INVEST MED MK-8189 MISC 3 CAP EA PO SCH (08:01)
[2017-05-28 16:00] VITALS: BP 114/82
--- NOTE | 2017-05-28 19:25 | NUR ---
MS/RN NOTES RECEIVED PT. SITTING UP IN BED. PT. IS AWAKE, ALERT AND ORIENTED X4. BREATHING EVEN AND UNLABORED ON ROOM AIR. NO SOB, RESPIRATORY DISTRESS OR COMPLAINTS OF PAIN NOTED AT THIS TIME. PT. IS CALM AND COOPERATIVE AT THIS TIME. BED LOCKED AND IN LOWEST POSITION, SIDE RAILS UP X2, CALL LIGHT WITHIN REACH, WILL CONTINUE TO MONITOR.
[2017-05-28 20:00] VITALS: BP 139/83
[2017-05-28] MEDS: ZOLPIDEM TARTRATE 10 MG TABLET PO PRN (21:17)
--- NOTE | 2017-05-28 21:17 | NUR ---
MS/RN NOTES PT. REQUESTED SLEEPING MEDICATION. ADMINISTERED TO PTArleen HAAS ORDERED. WILL CONTINUE TO MONITOR PT.
--- NOTE | 2017-05-29 06:40 | NUR ---
MS/RN NOTES PT. IS LYING IN BED RESTING. BREATHING EVEN AND UNLABORED ON ROOM AIR. PT. IS EASILY AROUSABLE TO NAME. NO SOB, RESPIRATORY DISTRESS OR COMPLAINTS OF PAIN NOTED AT THIS TIME AND THROUGHOUT SHIFT. PT. IS CALM AND COOPERATIVE AT THIS TIME AND THROUGHOUT SHIFT. ALL PT. NEEDS MET. PT. SLEPT FOR 9 HOURS. BED LOCKED AND IN LOWEST POSITION, SIDE RAILS UP X2, CALL LIGHT WITHIN REACH, WILL ENDORSE TO DAYSHIFT NURSE FOR CONTINUITY OF CARE.
--- NOTE | 2017-05-29 07:30 | NUR ---
MS RN AM NOTES PT ASLEEP, AROUSES TO NAME AND TOUCH, AAO X 4, ON ROOM AIR, NOT IN ANY DISTRESS. DENIES ANY PAIN AT THIS TIME. NO IV ACCESS. AMBULATORY, NO SKIN ISSUES. CALL LIGHT WITHIN REACH. BED LOW LOCKED. SR UP X 2, INSTRUCTED TO CALL FOR ASSISTANCE. SAFETY MEASURES IN PLACE. WILL CONTINUE TO MONITOR.
[2017-05-29 08:00] VITALS: BP 119/76
[2017-05-29] MEDS: INVEST MED MK-8189 MISC 3 CAP EA PO SCH (08:46)
[2017-05-29] MEDS: INVEST MED MK-8189 MISC 3 TAB EA PO SCH (08:46)
--- NOTE | 2017-05-29 09:30 | NUR ---
MS RN NOTES ADMINISTERED INVESTIGATIONAL MEDICATION ORDERED.
[2017-05-29 16:00] VITALS: BP 122/58
--- NOTE | 2017-05-29 16:44 | NUR ---
MS RN OPENING NOTES. PT A&0X3 AND SETTING UP ROOM DESIRED. PT IS INDEPENDANT WITH ALL ADLS AND BATHING, PT IS AMBULATORY AND TOLERATING ROOM AIR, NO IVC AND REPORTING SKIN INTACT AND NO PAIN. PT ORIENTATED TO GUNN AND BRIEFED ON TODAY'S POC. PT IS WITHOUT CONCERN OR COMPLAINT AT THIS TIME. WILL CONTINUE TO MONITOR.
--- NOTE | 2017-05-29 17:16 | NUR ---
MS RN NOTES REPORT LEXT Murphy MOTTA FOR ERROL. PT VSS. NOT IN AN Y DISTRESS.
--- NOTE | 2017-05-29 18:29 | NUR ---
MS RN CLOSING NOTES. PT A&0X3 WATCHING MOVIE IN BED. PT TOLERATING ROOM AIR AND IS WITHOUT MEDICAL COMPLAINT AT THIS TIME. PT WITHOUT IVC. PT REMAINS INDEPENDENT WITH ADLS AND SELF CARE ACTIVITIES. BEHAVIOR IS CONGRUENT AND APPROPRIATE AT THIS TIME. BED IN LOWEST LOCKED POSITION WITH HANDRAILSX2 AND CALL SHER WITHIN REACH. ALL DAY NURSE DUTIES ATTENDED TO. PT WITHOUT CONCERN OR COMPLAINT AT THIS TIME. WILL ENDORSE TO NIGHT NURSE.
[2017-05-29] MEDS: ZOLPIDEM TARTRATE 10 MG TABLET PO PRN (18:58)
[2017-05-29] MEDS: LORAZEPAM 1 MG TABLET FOR AGITATION PO PRN (18:58)
[2017-05-29 20:00] VITALS: BP 112/73
--- NOTE | 2017-05-30 06:44 | NUR ---
MS RN NOTE PATIENT STABLE. ALL NEEDS MET AND ATTENDED TO. WILL ENDORSE TO DAY SHIFT FOR ERROL.
--- NOTE | 2017-05-30 07:23 | NUR ---
ms rn initial notes Received patient in bed, awake, on room air and tolerated well 02 saturation of 98%. Patient on clinical trial, no unusuall behavior noted. No IV access. Will continue to monitor accordingly.
[2017-05-30 08:00] VITALS: BP 127/81
[2017-05-30] MEDS: INVEST MED MK-8189 MISC 3 CAP EA PO SCH (08:26)
[2017-05-30] MEDS: INVEST MED MK-8189 MISC 3 TAB EA PO SCH (08:26)
[2017-05-30 16:00] VITALS: BP 109/77
--- NOTE | 2017-05-30 19:05 | NUR ---
ms rn closing notes All needs provided, attended, and anticipated. Kept patient clean and comfortable in bed, call light with in patient reach, endorsed to next shift RN to continue care.
--- NOTE | 2017-05-30 19:49 | NUR ---
RN NOTES PATIENT IN BED, ALERT AND ORIENTED X 4, CALM, NO SOB, NO DISTRESS, DENIES ANY PAIN AT THIS TIME, CLINICAL TRIAL PATIENT. KEPT SAFE AND COMFORTABLE, CALL LIGHT WITHIN REACH.
[2017-05-30 20:00] VITALS: BP 116/79
[2017-05-30 20:06] VITALS: BP 116/79
[2017-05-30] MEDS: ZOLPIDEM TARTRATE 10 MG TABLET PO PRN (21:03)
--- NOTE | 2017-05-31 06:24 | NUR ---
RN NOTES PATIENT RESTING COMFORTABLY IN BED, NO SOB, NO DISTRESS, NO BEHAVIOR DISTURBANCE, APPROPRIATE AFFECT, ADMITTED TO AUDITORY HALLUCINATIONS, DID NOT SPECIFY WHAT. GIVEN AMBIEN AT BEDTIME. MADE COMFORTABLE AND SAFE, CALL LIGHT WITHIN REACH.
--- NOTE | 2017-05-31 07:30 | NUR ---
RECEIVED PT. ALERT AND ORIENTED X4.NO COMPLAINTS,KEEPING TO SELF MOST OF THE TIME.
[2017-05-31 08:00] VITALS: BP 123/69
[2017-05-31] MEDS: INVEST MED MK-8189 MISC 3 TAB EA PO SCH (09:01)
[2017-05-31] MEDS: INVEST MED MK-8189 MISC 3 CAP EA PO SCH (09:01)
--- NOTE | 2017-05-31 14:30 | NUR ---
DOWN TO SMOKE WITH SUPERVISION.
[2017-05-31 16:00] VITALS: BP 105/72
--- NOTE | 2017-05-31 18:18 | NUR ---
DAY UNEVENTFUL AND PT. COOPERATIVE.
--- NOTE | 2017-05-31 19:57 | NUR ---
MS/RN OPENING NOTES PATIENT IN BED, RESTING COMFORTABLY IN BED, ABLE TO COMMUNICATE IN CORDIAL MANNER, RESPIRATION EVEN AND UNLABORED. DENIES ANY PAIN, OBSERVE NO GUARDING OR GRIMACE. WILL CONTINUE TO MONITOR HOUR OF SLEEP AND BEHAVIOR. CALL LIGHTS WITHIN REACH, BED IN LOCK POSITION.
[2017-05-31 20:00] VITALS: BP 119/85
[2017-05-31] MEDS: ZOLPIDEM TARTRATE 10 MG TABLET PO PRN (21:24)
--- NOTE | 2017-05-31 21:24 | NUR ---
ms/rn notes PATIENT REQUESTED FOR SLEEPING PILL AFTER HE WAS ACCOMPANIED TO SMOKE BY CREW LEADER/CONTROL ROOM OPERATOR. WILL MONITOR SLEEP.
--- NOTE | 2017-06-01 06:35 | NUR ---
MS/RN closing notes Patient able to sleep during the night, sleeping pill was requested. Cooperative to care and with calm behavior. Assisted by technical administrator to smoke last night, Can ambulate and do adls independently with supervision. Call lights within reach, Bed in lock position. Respirations even and unlabored. Will endorse to am rn for blossom.
[2017-06-01 08:00] VITALS: BP 112/78
--- NOTE | 2017-06-01 08:10 | NUR ---
MS RN RECEIVED ON BED, AWAKE,ALERT,ORIENTED X4,NOT IN ANY FORM OF DISTRESS, RESPIRATIONS EVEN AND UNLABORED, NO SOB NOTED, LUNGS ARE CLEAR,ABDOMEN SOFT,POSITIVE BOWEL SOUNDS, DENIES PAIN AT THIS TIME, RESEARCH PATIENT OF DR. COYLE, DENIES PAIN AT THIS TIME, WILL MONITOR PATIENT.
--- NOTE | 2017-06-01 09:00 | NUR ---
MS MATHUR BREAKFAST SERVED,DUE MEDS GIVEN,TOLERATED WELL.
[2017-06-01] MEDS: INVEST MED MK-8189 MISC 3 CAP EA PO SCH (09:19)
[2017-06-01] MEDS: INVEST MED MK-8189 MISC 3 TAB EA PO SCH (09:20)
--- NOTE | 2017-06-01 12:00 | NUR ---
ms rn on bed,no distress noted.
[2017-06-01 16:00] VITALS: BP 114/69
--- NOTE | 2017-06-01 18:54 | NUR ---
MS RN ON BED, NO DISTRESS NOTED, NPO AFTER 9PM, FOR DR. COYLE IN AM.
--- NOTE | 2017-06-01 19:35 | NUR ---
MS RN OPENING NOTES PT IS IN BED RESTING, NO SIGNS OF SOB OR DISTRESS. BREATHING EVENLY AND UNLABORED ON RA.NPO AFTER 2100 TONIGHT, PT AWARE. BED IS IN LOW AND LOCKED POSITION, CALL LIGHT WITHIN REACH. WILL CONTINUE TO MONITOR
[2017-06-01 20:00] VITALS: BP 139/79
[2017-06-01] MEDS: ZOLPIDEM TARTRATE 10 MG TABLET PO PRN (20:43)
--- NOTE | 2017-06-02 06:12 | NUR ---
MS RN CLOSING NOTES PT IS IN BED, NO ACUTE CHANGES THROUGHOUT THE SHIFT. NPO SINCE 2100, LABS TO BE DRAWN TODAY. BED IS IN LOW AND LOCKED POSITION, CALL LIGHT WITHIN REACH. WILL ENDORSE TO DAYSHIFT.
--- NOTE | 2017-06-02 07:44 | NUR ---
MS RN: INITIAL NOTE RECEIVED PT A/OX4. NO DISTRESS. NO SOB NOTED. NO PAIN NOTED. ON MS. BRP. AMBULATORY. SKIN INTACT. ON REGULAR DIET. BUT ON NPO TODAY DUE TO LABS ORDERED BY .RESTING COMFORTABLY IN BED. CALL LIGHT WITHIN REACH.
[2017-06-02 08:00] VITALS: BP 106/68
--- NOTE | 2017-06-02 08:45 | NUR ---
PT LEFT FOR LABS DUE TO CLINICAL TRIAL WITH NURSE FROM MD COYLE.
--- NOTE | 2017-06-02 09:15 | NUR ---
RETURNED FROM LABS WITH NURSE OF MD COYLE. ALL MEDS GIVEN ORDERED.
[2017-06-02] MEDS: INVEST MED MK-8189 MISC 3 CAP EA PO SCH (09:41)
[2017-06-02] MEDS: INVEST MED MK-8189 MISC 3 TAB EA PO SCH (09:42)
--- NOTE | 2017-06-02 10:14 | NUR ---
PT LEFT WITH MD CHAUDHARY NURSE FOR EVALUATION.
--- NOTE | 2017-06-02 12:00 | NUR ---
PT RETURNED FROM MD CHAUDHARY OFFICE.
--- NOTE | 2017-06-02 13:50 | NUR ---
PT LEFT WITH NURSE OF MD COYLE.
--- NOTE | 2017-06-02 14:08 | NUR ---
PT RETURNED FROM MD CHAUDHARY OFFICE.
[2017-06-02 16:00] VITALS: BP 128/76
--- NOTE | 2017-06-02 18:44 | NUR ---
MS RN: CLOSING NOTE PT TOOK ALL MEDICATIONS PROVIDED ON TIME ORDERED BY MD. ARNDT. NO DISTRESS NOTED. NO SOB NOTED. NO PAIN NOTED. NO N/V NOTED. BRP. AMBULATORY. SKIN INTACT. ON REGULAR DIET. MRSA NARES PER MD CHAUDHARY ORDERS COLLECTED AND PENDING. RESTING COMFORTABLY IN BED. CALL LIGHT WITHIN REACH.
--- NOTE | 2017-06-02 19:20 | NUR ---
RN NOTES RECEIVED PT IN BED, AWAKE, A/0 X 4. VERBALLY RESPONSIVE. WATCHING TV AT THIS TIME. NO DISTRESS, NO SOB NOTED. STABLE. AMBULATORY. PT IS CALM AND COOPERATIVE. ALL NEEDS ATTENDED AND MET. KEPT COMFORTABLE. CALL LIGHT WITHIN REACH . SAFETY PRECAUTIONS OBSERVED. WILL CONT TO MONITOR.
[2017-06-02 20:00] VITALS: BP 123/76
[2017-06-02] MEDS: ZOLPIDEM TARTRATE 10 MG TABLET PO PRN (21:07)
--- NOTE | 2017-06-03 00:58 | NUR ---
PT IN BED, ASLEEP , AROUSES EASILY. NO DISTRESS NO SOB NOTED. NO C/O PAIN OR DISCOMFORT. ALL NEEDS ATTENDED. SAFETY PRECAUTIONS OBSERVED. CALL LIGHT WITHIN REACH. WILL CONT TO MONITOR.
--- NOTE | 2017-06-03 05:31 | NUR ---
HOURS OF SLEEP : 7.5 HOURS
--- NOTE | 2017-06-03 06:35 | NUR ---
RN NOTES PT IN BED, AWAKE, WATCHING TV AT THIS TIME. A/0 X 4. VERBALLY RESPONSIVE. NO DISTRESS, NO SOB NOTED. STABLE. AMBULATORY. PT IS CALM AND COOPERATIVE. ALL NEEDS ATTENDED AND MET. KEPT COMFORTABLE. CALL LIGHT WITHIN REACH . SAFETY PRECAUTIONS OBSERVED. WILL ENDORSE TO NEXT SHIFT FOR ERROL.
--- NOTE | 2017-06-03 07:35 | NUR ---
MS RN: INITIAL NOTE RECEIVED PT A/OX4. NO DISTRESS NOTED. NO PAIN NOTED. NO SOB NOTED. ON ROOM AIR. MS CLINICAL TRIAL. BRP. AMBULATORY. SKIN INTACT. ON REGULAR DIET. NO IV SITE NOTED/ NEEDED. RESTING COMFORTABLY IN BED. CALL LIGHT WITHIN REACH.
[2017-06-03 08:00] VITALS: BP 111/68
[2017-06-03] MEDS: INVEST MED MK-8189 MISC 3 TAB EA PO SCH (09:19)
[2017-06-03] MEDS: INVEST MED MK-8189 MISC 3 CAP EA PO SCH (09:19)
[2017-06-03 16:00] VITALS: BP 118/79
--- NOTE | 2017-06-03 18:49 | NUR ---
MS RN: CLOSING NOTE PT A/OX4. TOOK ALL MEDICATIONS ORDERED BY MD. NO PAIN NOTED.NO SOB NOTED. NO DISTRESS NOTED. NO N/V NOTED. ON CLINICAL TRIAL MS. AMBULATORY. INDEPENDENT WITH ADLS. RESTING COMFORTABLY IN BED. CALL LIGHT WITHIN REACH.
--- NOTE | 2017-06-03 19:45 | NUR ---
MSRN AMBULATORY, MOVED TO 2ND FLOOR WITH ALL PERSONAL BELONGINGS. NO NEEDS FOR NOW. COOPERTIVE, BEHAVIOR ACCEPTABLE.
[2017-06-03 20:00] VITALS: BP 117/79
[2017-06-03] MEDS: LORAZEPAM 1 MG TABLET FOR AGITATION PO PRN (21:41)
[2017-06-03] MEDS: ZOLPIDEM TARTRATE 10 MG TABLET PO PRN (22:29)
--- NOTE | 2017-06-03 22:30 | NUR ---
MSKAREEN REQUESTED WALDO, ADMINISTERED.
--- NOTE | 2017-06-03 23:50 | NUR ---
MSRN DOSING FROM WALDO. ALL NEEDS ATTENDED. CLOSELY WATCHED.
--- NOTE | 2017-06-04 06:27 | NUR ---
MSRN HOURS OF SLEEP 6HRS
[2017-06-04 08:00] VITALS: BP 113/66
--- NOTE | 2017-06-04 08:00 | NUR ---
RN NOTES RECEIVED PATIENT IN THE BED SLEEPING, AROUSAL WHEN CALLED NAME OR TOUCHED. NO ACUTE , NO RESPIRATORY DISTRESS, CALL LIGHT WITHIN TO REACH, SAFETY PRECAUTION MAINTAINED ALL THE TIME.
[2017-06-04] MEDS: INVEST MED MK-8189 MISC 3 TAB EA PO SCH (09:07)
[2017-06-04] MEDS: INVEST MED MK-8189 MISC 3 CAP EA PO SCH (09:07)
--- NOTE | 2017-06-04 13:00 | NUR ---
RN NOTES PATIENT IN THE BED RESTING IN THE BED, NO ACUTE DISTRESS, CONTINUED MONITORING.
[2017-06-04 16:00] VITALS: BP 118/81
--- NOTE | 2017-06-04 18:58 | NUR ---
RN NOTES PATIENT IN THE BED EATING, NO ACUTE , NO RESPIRATORY DISTRESS, V/S STABLE, PATIENT SELF CARE, AMBULATORY, SAFETY PRECAUTION MAINTAINED ALL THE TIME. ENDORSED ONCOMING NURSE FOR CONTINUATION OF CARE.
[2017-06-04 20:08] VITALS: BP 112/68
[2017-06-04] MEDS: LORAZEPAM 1 MG TABLET FOR AGITATION PO PRN (21:03)
--- NOTE | 2017-06-04 21:15 | NUR ---
MS RN NOTE: PATIENT ANXIOUS AND REQUESTING FOR ATIVAN. ATIVAN 1MG ORAL GIVEN PER MD ORDER. WILL CONTINUE TO MONITOR.
[2017-06-04] MEDS: ZOLPIDEM TARTRATE 10 MG TABLET PO PRN (22:00)
--- NOTE | 2017-06-04 22:15 | NUR ---
MS RN NOTE: PATIENT REQUEST FOR AMBIEN 10MG ORAL PER MD ORDER, WILL CONTINUE TO MONITOR.
--- NOTE | 2017-06-05 06:15 | NUR ---
MS RN NOTE: PATIENT RESTING IN BED, NO ACUTE DISTRESS NOTED. BREATHING EVEN AND UNLABORED, NO SOB NOTED. PATIENT CALM AND COOPERATIVE. PATIENT SLEEP ABOUT 7 HOURS. BED LOCKED AND IN LOWEST POSITION, CALL LIGHT IN REACH. WILL ENDORSE TO DAY NURSE TO CONTINUE WITH PLAN OF CARE.
[2017-06-05 08:00] VITALS: BP 127/75
--- NOTE | 2017-06-05 08:00 | NUR ---
RN NOTES SEEN PATIENT IN THE BED RESTING, NO ACUTE, NO RESPIRATORY DISTRESS, CALL LIGHT WITHIN TO REACH, SAFETY PRECAUTION MAINTAINED ALL THE TIME.
[2017-06-05] MEDS: INVEST MED MK-8189 MISC 3 CAP EA PO SCH (09:22)
[2017-06-05] MEDS: INVEST MED MK-8189 MISC 3 TAB EA PO SCH (09:23)
--- NOTE | 2017-06-05 11:13 | NUR ---
RN NOTES PATIENT IN THE ROOM, AFTER SMOKING, SCHEDULED MEDICATION ADMINISTERED, V/S STABLE, PATIENT REFUSED PAIN AT THIS TIME, NO ACUTE / NO RESPIRATORY DISTRESS, NEEDS ATTENDED AND ANTICIPATED, ENCOURAGED TO EXPRESS FEELINGS AND CONCERNS. SAFETY PRECAUTION MAINTAINED ALL THE TIME, CONTINUED MONITORING.
[2017-06-05 16:00] VITALS: BP 129/86
--- NOTE | 2017-06-05 18:51 | NUR ---
RN NOTES PATIENT IN THE BED, NO ACUTE DISTRESS, V/S TAKEN STABLE, REDIRECTABLE, NEEDS ATTENDED AND ANTICIPATED, SAFETY PRECAUTION MAINTAINED ALL THE TIME. ENDORSED ONCOMING NURSE FOR CONTINUATION OF CARE.
[2017-06-05 20:00] VITALS: BP 119/86
[2017-06-05] MEDS: LORAZEPAM 1 MG TABLET FOR AGITATION PO PRN (20:52)
--- NOTE | 2017-06-05 21:00 | NUR ---
MS RN NOTE: PATIENT ANXIOUS AND REQUESTING FOR ATIVAN. ATIVAN 1MG ORAL GIVEN PER MD ORDER. WILL CONTINUE TO MONITOR.
[2017-06-05] MEDS: ZOLPIDEM TARTRATE 10 MG TABLET PO PRN (22:07)
--- NOTE | 2017-06-05 22:15 | NUR ---
MS RN NOTE: PATIENT REQUEST FOR AMBIEN 10MG ORAL PER MD ORDER, WILL CONTINUE TO MONITOR.
[2017-06-06 08:00] VITALS: BP 111/78
--- NOTE | 2017-06-06 08:00 | NUR ---
RN NOTES SEEN PATIENT IN THE HALLWAY, A/O X4, NO ACUTE DISTRESS, ENCOURAGED TO EXPRESS FEELINGS AND CONCERN. PATIENT HAS NO C/O PAIN, NO RESPIRATORY DISTRESS, ENCOURAGED TO ATTEND GROUP THERAPY, AND INCREASE FLUID INTAKE. CALL LIGHT WITHIN TO REACH, SAFETY PRECAUTION MAINTAINED ALL THE TIME.
[2017-06-06] MEDS: INVEST MED MK-8189 MISC 3 CAP EA PO SCH (08:47)
[2017-06-06] MEDS: INVEST MED MK-8189 MISC 3 TAB EA PO SCH (08:48)
[2017-06-06 16:00] VITALS: BP 106/70
--- NOTE | 2017-06-06 18:00 | NUR ---
RN NOTES PATIENT IN THE BED , NO ACUTE DISTRESS, SEEN BY DR COYLE, SAFETY PRECAUTION MAINTAINED ALL THE TIME. ENDORSED ONCOMING NURSE FOR CONTINUATION OF CARE.
--- NOTE | 2017-06-06 19:45 | NUR ---
RN INITIAL NOTES PT IS IN BED RESTING. CLINICAL TRIAL PT. NO SIGNS OF SIGNS OF SOB OR DISTRESS. BED IS IN LOW AND LOCKED POSITION, CALL LIGHT IS WITHIN REACH. WILL CONTINUE TO MONITOR PT.
[2017-06-06 20:00] VITALS: BP_SYST 142; BP_SYST 146; BP_DIAS 90
[2017-06-06] MEDS: LORAZEPAM 1 MG TABLET FOR AGITATION PO PRN (20:53)
[2017-06-06] MEDS: ZOLPIDEM TARTRATE 10 MG TABLET PO PRN (22:05)
--- NOTE | 2017-06-07 06:35 | NUR ---
MS RN CLOSING NOTES PT IS IN BED RESTING. ALL NEEDS WERE ANTICIPATED AND MET. BED IS IN LOW AND LOCKED POSITION, CALL LIGHT IS WITHIN REACH. WILL ENDORSE TO DAY SHIFT
--- NOTE | 2017-06-07 07:54 | NUR ---
RN OPENING NOTES RECEIVED PT. PT IS STABLE AND SLEEPING IN BED. NO S/S OF SOB OR DISTRESS. PT DOES NOT APPEAR TO BE IN PAIN. PT IS A CLINICAL TRIAL PT. PT HAS NO IV ACCESS. SAFETY MEASURES IN PLACE, CALL LIGHT WITHIN REACH, WILL CONTINUE TO MONITOR.
[2017-06-07 08:00] VITALS: BP 109/78
[2017-06-07] MEDS: INVEST MED MK-8189 MISC 3 CAP EA PO SCH (08:44)
[2017-06-07] MEDS: INVEST MED MK-8189 MISC 3 TAB EA PO SCH (08:44)
[2017-06-07 16:00] VITALS: BP 118/80
--- NOTE | 2017-06-07 18:19 | NUR ---
RN CLOSING NOTES PT IS IN BEDSIDE CHAIR RESTING. NO S/S OF DISTRESS OR SOB. PT HAS NO C/O PAIN. ALL PT NEEDS ANTICIPATED AND MET. SAFETY MEASURES IN PLACE, CALL LIGHT IN REACH. WILL ENDORSE TO POWER REGULATOR FOR ERROL.
[2017-06-07 20:00] VITALS: BP 132/86
[2017-06-07 20:03] VITALS: BP 132/86
[2017-06-07] MEDS: LORAZEPAM 1 MG TABLET FOR AGITATION PO PRN (20:49)
[2017-06-07] MEDS: ZOLPIDEM TARTRATE 10 MG TABLET PO PRN (21:45)
--- NOTE | 2017-06-08 07:50 | NUR ---
RN OPENING NOTES RECEIVED PT. PT IS STABLE AND SITTING IN BEDSIDE CHAIR. A/OX4. NO S/S OF DISTRESS OR SOB. NO C/O PAIN AT THIS TIME. PER TRIAL PROTOCOL, LORAZEPAM TO BE HELD AT 2100. SAFETY MEASURES IN PLACE, CALL LIGHT WITHIN REACH. WILL CONTINUE TO MONITOR.
[2017-06-08 08:00] VITALS: BP_SYST 106; BP_SYST 125; BP_DIAS 59; BP_DIAS 77
[2017-06-08] MEDS: INVEST MED MK-8189 MISC 3 CAP EA PO SCH (08:31)
[2017-06-08] MEDS: INVEST MED MK-8189 MISC 3 TAB EA PO SCH (08:31)
[2017-06-08 16:00] VITALS: BP 137/87
--- NOTE | 2017-06-08 18:33 | NUR ---
RN CLOSING NOTES PT IS IN ROOM RESTING IN BED. A/OX4. NO S/S OF SOB OR RESPIRATORY DISTRESS. ALL PT NEEDS ANTICIPATED AND MET. PER CLINICAL TRIAL PROTOCOL, LORAZEPAM TO BE HELD AT 2100. SAFETY MEASURES IN PLACE, CALL LIGHT WITHIN REACH. WILL ENDORSE TO BUS INFO CONSULTANT FOR ERROL.
[2017-06-08 20:00] VITALS: BP 125/77
[2017-06-08] MEDS: LORAZEPAM 1 MG TABLET FOR AGITATION PO PRN (20:52)
[2017-06-08] MEDS: ZOLPIDEM TARTRATE 10 MG TABLET PO PRN (22:03)
--- NOTE | 2017-06-09 06:10 | NUR ---
RN CLOSING NOTES NO SIGNIFICANT CHANGES IN PATIENT CONDITION OVERNIGHT. PATIENT HAS BEEN ASLEEP SINCE 2300. NO SOB OR DISTRESS NOTED AT THIS TIME. PATIENT DOES NOT APPEAR TO BE IN PAIN. BED IN A LOW POSITION, CALL LIGHT WITHIN PATIENT REACH. WILL ENDORSE FOR ERROL.
[2017-06-09 08:00] VITALS: BP 105/70
[2017-06-09] MEDS: INVEST MED MK-8189 MISC 3 CAP EA PO SCH (08:40)
[2017-06-09] MEDS: INVEST MED MK-8189 MISC 3 TAB EA PO SCH (08:40)
--- NOTE | 2017-06-09 09:00 | NUR ---
M/S RN - AM Notes Received pt in bed awake, calm and cooperative with care, denies pain, no apparent distress, no behavioral outburst. Investigational medication administered with no adverse reaction noted. All needs attended. Patient updated on plan of care. Will continue to monitor for safety and behavior.
--- NOTE | 2017-06-09 18:55 | NUR ---
M/S RN - Notes No significant change in condition noted. Patient remain isolative, exhibits no behavioral outburst, calm and cooperative. Will endorse to overnight caregiver accordingly.
--- NOTE | 2017-06-09 19:00 | NUR ---
RN NOTES RECEIVED PT IN BED RESTING COMFORTABLY. A/O X 4, PT IN STABLE CONDITION, NO S/S OF DISTRESS. NO COMPLAINS OF PAIN AT THIS TIME. SAFETY MEASURES ARE IN PLACE, CALL LIGHT IS IN REACH. WILL CONTINUE TO MONITOR.
[2017-06-09 20:00] VITALS: BP 131/83
[2017-06-09 20:58] VITALS: BP 131/83
[2017-06-09] MEDS: LORAZEPAM 1 MG TABLET FOR AGITATION PO PRN (21:03)
[2017-06-09] MEDS: ZOLPIDEM TARTRATE 10 MG TABLET PO PRN (22:04)
--- NOTE | 2017-06-10 06:17 | NUR ---
MS RN CLOSING NOTES IN BED ASLEEP AND EASILY AWAKEN, HOB ELEVATED, TOLERATING ROOM AIR 99% RESPIRATIONS EVEN AND UNLABORED. AFEBRILE, IN STABLE CONDITION. NO PSYCHIATRIC INSTABILITY. NOT IN S/S DISTRESS. ALL NURSING CARE RENDERED. NEEDS ATTENDED AND ANTICIPATED, KEPT CLEAN AND DRY AND COMFORTABLE, NO COMPLAINS OF PAIN AT THIS TIME. GOOD SKIN CARE PROVIDED. FREQUENT VISUAL CHECK DONE FOR SAFETY EVERY 2 HOURS. ON LOW BED AT ALL TIMES TO ENSURE SAFETY. SAFE HAZARD FREE ENVIRONMENT PROVIDED. CALL LIGHT WITHIN EASY TO REACH. WILL ENDORSE NEXT SHIFT CONTINUITY OF CARE.
--- NOTE | 2017-06-10 07:25 | NUR ---
MS/RN Patient received Patient received in bed, calm, cooperative, denies any pain. Call light within reach, will continue to monitor.
[2017-06-10 08:00] VITALS: BP 114/63
--- NOTE | 2017-06-10 09:00 | NUR ---
MS/RN Medications Investigational medications administered as ordered, patient observed swallowing all six pills.
[2017-06-10] MEDS: INVEST MED MK-8189 MISC 3 TAB EA PO SCH (09:04)
[2017-06-10] MEDS: INVEST MED MK-8189 MISC 3 CAP EA PO SCH (09:04)
[2017-06-10 16:00] VITALS: BP 123/80
--- NOTE | 2017-06-10 17:49 | NUR ---
MS/RN End note No changes in care at this time. Calm and cooperative throughout shift, no behavior concerns. Will endorse to cytotechnologist/histotechnologist.
--- NOTE | 2017-06-10 19:43 | NUR ---
received patient in room alert oriented x 4 denies any pain or discomfort at this time, no respiratory distress noted vital sign stable will continues to monitor the patient.
[2017-06-10] MEDS: LORAZEPAM 1 MG TABLET FOR AGITATION PO PRN (20:58)
[2017-06-10] MEDS: ZOLPIDEM TARTRATE 10 MG TABLET PO PRN (21:59)
--- NOTE | 2017-06-11 06:59 | NUR ---
No changes in care at this time. Calm and cooperative throughout shift, no behavior concerns. Will endorse to morning shift.
--- NOTE | 2017-06-11 07:27 | NUR ---
MS/RN OPENING NOTE PATIENT RECEIVED IN BED IN STABLE CONDITION. A/O X 4. NO SIGNS OF ACUTE DISTRESS. NO COMPLAIN OF PAIN OR DISCOMFORT. ALL NEEDS ATTENDED TO. CALL LIGHT WITHIN REACH. WILL CONTINUE TO MONITOR TO ENSURE SAFETY.
[2017-06-11 08:00] VITALS: BP 112/75
[2017-06-11] MEDS: INVEST MED MK-8189 MISC 3 TAB EA PO SCH (08:20)
[2017-06-11] MEDS: INVEST MED MK-8189 MISC 3 CAP EA PO SCH (08:21)
[2017-06-11 16:00] VITALS: BP 133/70
--- NOTE | 2017-06-11 18:11 | NUR ---
MS/RN CLOSING NOTE PATIENT IN BED IN STABLE CONDITION. A/O X 4. NO SIGNS OF ACUTE DISTRESS. NO COMPLAIN OF PAIN OR DISCOMFORT. ALL NEEDS ATTENDED TO. CALL LIGHT WITHIN REACH . WILL ENDORSE TO NEXT SHIFT FOR CONTINUITY OF CARE.
--- NOTE | 2017-06-11 19:41 | NUR ---
MS/RN OPENING NOTES PATIENT IN BED, AWAKE, ALERT. ABLE TO VERBALIZE NEEDS INFORMED MEDICATION REGIMEN AND THAT HE WILL BE TAKING HIS BEDTIME MED AT 10 PM AND WILL BE TAKING ATIVAN AT 9PM. COOPERATIVE TO CARE AND WAS REMINDED TO CALL FOR ASSISTANCE. CALL LIGHTS WITHIN REACH. NO PAIN VERBALIZED AND OBSERVED. RESPIRATIONS EVEN AND UNLABORED.
[2017-06-11 20:00] VITALS: BP 116/83
[2017-06-11] MEDS: ZOLPIDEM TARTRATE 10 MG TABLET PO PRN (21:48)
[2017-06-11 22:16] VITALS: BP 116/83
--- NOTE | 2017-06-12 06:30 | NUR ---
MS/RN NOTES PATIENT ABLE TO SLEEP ATLEAST 8 HOURS, COOPERATIVE TO CARE, RESTING COMFORTABLY IN BED. AMBULATES AND ABLT OT VERBALIZE NEEDS. BED IN LOCK POSITION. CALL LIGHTS WITHIN REACH. WILL ENDORSE TO AM RN FOR ERROL.
--- NOTE | 2017-06-12 07:41 | NUR ---
MS RN OPENING NOTE RECEIVED BEDSIDE SBAR REPORT. PATIENT IS A/O X4, ASLEEP, EASILY AWAKEN. PRESENTS WITH UNLABORED BREATHING. CHEST RISING EQUALLY BILATERALLY. NO S/S OF DISTRESS. DENIES PAIN/DISCOMFORT AT THIS TIME. PATIENT IS IN BED, BED IS LOCKED IN LOWEST POSITION, SIDE RAILS UP X2. CALL LIGHT WITHIN REACH. PATIENT IS EDUCATED TO USE THE CALL LIGHT TO CALL FOR ASSISTANCE VIA TEACH BACK METHOD AND VERBALIZED UNDERSTANDING.ALL NEEDS ARE MET AT THIS TIME. WILL CONTINUE TO ASSESS/MONITOR THROUGHOUT THE SHIFT.
--- NOTE | 2017-06-12 07:52 | NUR ---
MS RN NOTE RECEIVED "INVESTIGATIONAL MED 8189" AND "INVESTIGATIONAL MED MISC 1 TAB EA" FROM PHARMACY DELIVERED BY [facility]. WILL ADMINISTER ORDERED.
[2017-06-12 08:00] VITALS: BP 118/74
[2017-06-12] MEDS: INVEST MED MK-8189 MISC 3 CAP EA PO SCH (08:54)
[2017-06-12] MEDS: INVEST MED MK-8189 MISC 3 TAB EA PO SCH (08:54)
[2017-06-12 16:00] VITALS: BP_SYST 129; BP_DIAS 80; BP_DIAS 83
--- NOTE | 2017-06-12 18:58 | NUR ---
MS RN CLOSING NOTE GAVE BEDSIDE SBAR REPORT TO KAREEN GILL. PATIENT IS A/O X4, AWAKE, RESPONSIVE AND COOPERATIVE. PRESENTS WITH UNLABORED BREATHING. CHEST RISING EQUALLY BILATERALLY. NO S/S OF DISTRESS. DENIES PAIN/DISCOMFORT AT THIS TIME. PATIENT IS IN BED, BED IS LOCKED IN LOWEST POSITION, SIDE RAILS UP X2. CALL LIGHT WITHIN REACH. PATIENT IS EDUCATED TO USE THE CALL LIGHT TO CALL FOR ASSISTANCE VIA TEACH BACK METHOD AND VERBALIZED UNDERSTANDING.ALL NEEDS ARE MET AT THIS TIME. ENDORSED TO THE LABOR TRAINER FOR ERROL.
--- NOTE | 2017-06-12 19:45 | NUR ---
RN NOTES RECEIVED PATIENT IN BED, ALERT AND ORIENTED X4, CALM, NO SOB, NO RESPIRATORY DISTRESS, TOLERATING ROOM AIR, DENIES ANY PAIN AT THIS TIME, DENIES ANY HALLUCINATIONS VISUAL AND AUDITORY, KEPT SAFE AND COMFORTABLE, CALL LIGHT WITHIN REACH, WILL CONTINUE TO MONITOR.
[2017-06-12 20:00] VITALS: BP 133/81
[2017-06-12] MEDS: LORAZEPAM 1 MG TABLET FOR AGITATION PO PRN (20:35)
--- NOTE | 2017-06-12 20:36 | NUR ---
RN NOTES GIVEN ATIVAN 1MG PO PRN PER PATIENT'S REQUEST. WILL CONTINUE TO MONITOR
[2017-06-12] MEDS: ZOLPIDEM TARTRATE 10 MG TABLET PO PRN (21:34)
--- NOTE | 2017-06-13 07:07 | NUR ---
RN NOTES PATIENT ALERT AND AWAKE, NO DISTRESS, NO BEHAVIOR DISTURBANCE DURING SHIFT, COOPERATIVE WITH CARE, SLEPT FOR 7 HOURS. ALL NEEDS ATTENDED, CALL LIGHT WITHIN REACH.
--- NOTE | 2017-06-13 07:22 | NUR ---
MS RN OPENING NOTES RECEIVED PT FROM NIGHTSHIFT NURSE IN STABLE CONDITION. PT IS A/O X4. NO SOB OR SIGNS OF DISTRESS NOTED. BREATHING IS EVEN AND UNLABORED. PT DENIES ANY PAIN AT THIS TIME. PT IS A CLINICAL TRIAL PT OF DR. COYLE. NO PROCEDURES OR TESTS SCHEDULED FOR HIM TODAY. WILL CONTINUE TO MONITOR
[2017-06-13 08:00] VITALS: BP 114/76
[2017-06-13] MEDS: INVEST MED MK-8189 MISC 3 TAB EA PO SCH (08:08)
[2017-06-13] MEDS: INVEST MED MK-8189 MISC 3 CAP EA PO SCH (08:08)
[2017-06-13 16:00] VITALS: BP 120/76
--- NOTE | 2017-06-13 18:55 | NUR ---
MS RN CLOSING NOTES PT REMAIN STABLE. NO BEHAVIOR RELATED PROBLEMS DURING SHIFT. ALL NEEDS MET AND ORDERS CARRIED OUT ACCORDINGLY. WILL ENDORSE TO NIGHTSHIFT NURSE FOR ERROL
[2017-06-13 20:00] VITALS: BP 134/78
--- NOTE | 2017-06-13 20:00 | NUR ---
RN NOTES PATIENT IN BED, ALERT AND ORIENTED X4, CALM, COOPERATIVE, NO SOB, NO RESPIRATORY DISTRESS, NO COMPLAIN OF PAIN, KEPT SAFE AND COMFORTABLE, CALL LIGHT WITHIN REACH.
[2017-06-13] MEDS: LORAZEPAM 1 MG TABLET FOR AGITATION PO PRN (20:51)
[2017-06-13] MEDS: ZOLPIDEM TARTRATE 10 MG TABLET PO PRN (22:05)
--- NOTE | 2017-06-14 06:40 | NUR ---
RN NOTES PATIENT AWAKE, NO SOB, NO DISTRESS, NO BEHAVIOR DISTURBANCE DURING SHIFT, KEPT TO SELF, SLEPT FOR 6 HOURS, KEPT COMFORTABLE, CALL LIGHT WITHIN REACH.
--- NOTE | 2017-06-14 07:05 | NUR ---
RN NOTES PT IS SLEEPING COMFORTABLY IN BED. PT ON RA, RESPIRATIONS ARE EVEN AND UNLABORED. NO SIGNS OF DISTRESS NOTED. SAFETY MEASURES ARE IN PLACE,CALL LIGHT IS IN REACH. WILL CONTINUE TO MONITOR.
[2017-06-14 08:00] VITALS: BP 113/77
[2017-06-14] MEDS: INVEST MED MK-8189 MISC 3 TAB EA PO SCH (08:26)
[2017-06-14] MEDS: INVEST MED MK-8189 MISC 3 CAP EA PO SCH (08:26)
[2017-06-14 16:00] VITALS: BP 119/79
--- NOTE | 2017-06-14 18:33 | NUR ---
RN NOTES PT IS RESTING COMFORTABLY IN HIS ROOM. ON RA, RESPIRATIONS ARE EVEN AND UNLABORED. ALL MEDS WERE GIVEN ORDERED. ALL PT NEEDS MET AND NO SIGNS OF DISTRESS NOTED. SAFETY MEASURES ARE IN PLACE, CALL LIGHT IS IN REACH. WILL ENDORSE TO LUNG PULLER RN FOR CONTINUITY OF CARE.
[2017-06-14 20:00] VITALS: BP 118/92
--- NOTE | 2017-06-14 20:00 | NUR ---
RN NOTES PATIENT IN THE ROOM, WATCHING TV, CALM, NOT IN ANY DISTRESS, NO SOB, DENIES ANY PAIN, NO BEHAVIOR, PATIENT COOPERATIVE. KEPT SAFE AND COMFORTABLE, CALL LIGHT WITHIN REACH.
[2017-06-14] MEDS: LORAZEPAM 1 MG TABLET FOR AGITATION PO PRN (20:27)
[2017-06-14] MEDS: ZOLPIDEM TARTRATE 10 MG TABLET PO PRN (21:29)
--- NOTE | 2017-06-15 06:23 | NUR ---
RN NOTES PATIENT RESTING COMFORTABLY IN BED, ALERT AND AWAKE, NO SOB, NO DISTRESS, NO BEHAVIOR DISTURBANCE DURING SHIFT, COOPERATIVE AND CALM, ALL NEEDS ATTENDED, CALL LIGHT WITHIN REACH.
--- NOTE | 2017-06-15 07:47 | NUR ---
MS RN: INITIAL NOTE RECEIVED PT A/OX4. ON CLINICAL TRIAL. NO DISTRESS NOTED. NO SOB NOTED. NO PAIN NOTED. NO IV SITE NOTED. NONE NEEDED. ON REGULAR DIET. NO N/V NOTED. SKIN INTACT. AMBULATORY. SCHEDULED TO BE NPO AT MIDNIGHT ON 06/16/17. RESTING COMFORTABLY IN BED. CALL LIGHT WITHIN REACH.
[2017-06-15 08:00] VITALS: BP 114/67
[2017-06-15] MEDS: INVEST MED MK-8189 MISC 3 TAB EA PO SCH (08:39)
[2017-06-15] MEDS: INVEST MED MK-8189 MISC 3 CAP EA PO SCH (08:39)
[2017-06-15 16:00] VITALS: BP 131/90
--- NOTE | 2017-06-15 18:32 | NUR ---
MS RN: CLOSING NOTE RECEIVED PT A/OX4. CLINICAL TRIAL PT. TOOK ALL MEDS ON TIME. NO ADVERSE REACTIONS NOTED. NO PAIN NOTED. NO SOB NOTED. NO IV ACCESS NEEDED PER MD. SKIN INTACT. AMBULATORY. ON REGULAR DIET. NPO AT MIDNIGHT PER MD ORDER. MD COYLE ORDERED FOR PT NOT TO HAVE MEDS IN AM OF 06/16/17. RESTING COMFORTABLY IN BED. CALL LIGHT WITHIN REACH.
[2017-06-15 20:00] VITALS: BP 125/89
[2017-06-15] MEDS: LORAZEPAM 1 MG TABLET FOR AGITATION PO PRN (20:41)
[2017-06-15] MEDS: ZOLPIDEM TARTRATE 10 MG TABLET PO PRN (21:27)
--- NOTE | 2017-06-16 06:50 | NUR ---
MS RN NOTES AWAKE & RESPONSIVE. NOT IN ANY DISTRESS. NO SOB NOTED. DENIES ANY PAIN OR DISCOMFORT AT THIS TIME. MONITORED ACCORDINGLY. SLEPT FOR 8 HOURS. CALL LIGHT WITHIN REACH. BED IN LOWEST POSITION. SR UP X 2 FOR SAFETY. WILL ENDORSE TO NEXT SHIFT.
--- NOTE | 2017-06-16 07:30 | NUR ---
MMS/RN Patient received Patient received from shift supervisor melting. For discharge later today, paperwork completed and signed. Copy made of chart. All needs attended, will continue to monitor and ensure safety.
[2017-06-16 08:00] VITALS: BP 113/71
[2017-06-16] MEDS: INVEST MED MK-8189 MISC 3 TAB EA PO SCH ×2 (08:39→09:31)
[2017-06-16] MEDS: INVEST MED MK-8189 MISC 3 CAP EA PO SCH ×2 (08:39→09:31)
--- NOTE | 2017-06-16 08:53 | NUR ---
MS/RN Off floor Patient off floor at this time, taken to Dr Owens's office for final blood draw.
--- NOTE | 2017-06-16 09:15 | NUR ---
MS/RN Back to room Patient back in room following blood draw. Breakfast ordered.
--- NOTE | 2017-06-16 09:30 | NUR ---
MS/RN Medications Final dose of investigational medications administered, patient observed swallowing all six pills.
--- NOTE | 2017-06-16 11:00 | NUR ---
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 All personal belongings with patient and signed for on belongings list. Exit care signed, educated patient on the importance of following up with primary care doctor and psychiatrist. Medications from pharmact returned to pateint. Name bands removed. escorted to main lobby by FERNANDEZ.
== END 2017-06-16 11:00 | disposition home or self-care (01) | DRG 951 ==
LOC: MED 15:13 → MEDSG2 05-17 20:13 → MED 05-29 16:30 → MEDSG2 06-03 20:51
PROVIDERS: ADMIT Psychiatry & Neurology Psychiatry; ATTEND Psychiatry & Neurology Psychiatry
DX: Z00.6 Encounter for examination for normal comparison and control in clinical research program (principal); F20.0 Paranoid schizophrenia; Z79.899 Other long term (current) drug therapy; Z83.3 Family history of diabetes mellitus; Z81.8 Family history of other mental and behavioral disorders; Z80.3 Family history of malignant neoplasm of breast
CPT/HCPCS: 87081-TC; J1170; J2405; Z7610